=== PATIENT | female | born 1955 | race Caucasian/White ===

== ENCOUNTER → 2018-11-04 | Outpatient (CLI) | payer MEDICARE ==
[~2018-11-04] MED LIST: ALEVE220 M1 PO; CEFTIN500 MG PO; KEPPRA1000 MG PO; LYRICA; OMEPRAZOLE40 MG PO; REQUIP; ZITHROMAX250 MG PO
== END ==
LOC: RAD 10:15
PROVIDERS: ATTEND Internal Medicine Pulmonary Disease
DX: R06.02 Shortness of breath (principal); J96.11 Chronic respiratory failure with hypoxia; I50.20 Unspecified systolic (congestive) heart failure; J44.9 Chronic obstructive pulmonary disease, unspecified
CPT/HCPCS: 93306

== ENCOUNTER → 2018-12-09 | Outpatient (CLI) | payer MEDICARE ==
--- NOTE | 2018-12-09 14:14 | Diagnostic Imaging Report ---
EXAM: US ABDOMEN COMPLETE DATE: 12/09/2018 1:19 PM INDICATION: Chronic appetite is COMPARISON: None FINDINGS: The pancreas is only partially visualized but appears grossly unremarkable. The liver is normal in size measuring 10.3 cm in length. The liver demonstrates a subtle micronodular contour which can be seen in the setting of hepatic dysfunction/cirrhosis. No focal hepatic abnormality is identified. The main portal vein is patent with antegrade flow and diameter of 0.7 cm, within normal limits. The gallbladder is surgically absent. There is no biliary ductal dilatation. The common bile duct measures 5 mm. The spleen is normal in size measuring 8.6 cm in length and demonstrates an unremarkable sonographic appearance. The kidneys measure 8.5 cm in length on the right and 9.2 cm in length on the left. Cortical thickness and echogenicity are within normal limits. There is no evidence for solid renal mass, hydronephrosis, or shadowing calculi. The visualized portions the IVC are unremarkable. The proximal and mid aorta are normal in caliber. The distal aorta is not well-visualized secondary to prominent overlying bowel gas. There is no ascites present. IMPRESSION: 1. Subtle micronodular contour of the liver which is nonspecific but can be seen in the setting of hepatic dysfunction/cirrhosis. No focal hepatic abnormality identified. 2. Status post cholecystectomy. Signed by: Dr. Sd Baig MD on 12/09/2018 2:10 PM
== END ==
LOC: US 13:14
PROVIDERS: ATTEND Internal Medicine
DX: K73.9 Chronic hepatitis, unspecified (principal)
CPT/HCPCS: 76700